=== PATIENT | male | born 1955 | race African-American/Black ===

== ENCOUNTER → 2017-01-22 | Outpatient (CLI) | payer BC ==
--- NOTE | 2017-01-23 14:22 | SLEEP ---
DATE OF STUDY: 01/22/2017 ATTENDING PHYSICIAN: Dr. Chase. The patient is 61 years old who weighs 217 pounds with a BMI of 27. He underwent a split night study at [facility]. The patient's Moorhead score was 10. During the night of study, the patient spent 419 minutes in bed and slept for 379 minutes with a sleep efficiency of 90%. Sleep latency was 23 minutes with a REM latency of 43 minutes. Overall, sleep architecture showed normal stage I sleep, increased stage II sleep, normal slow wave and normal REM sleep. During the initial diagnostic portion of the study, the patient slept for 160 minutes. During that time, there were 56 obstructive apneas, 25 mixed apneas and 2 central apneas. There were 21 hypopneas. The patient's apnea hypopnea index was 29 per hour, supine index 79 per hour and a REM index of 5 per hour. Review of nocturnal oximetry study revealed a mean oxygen saturation of 96%, with the lowest of 85%. Only 0.5% of time oxygen saturation remained between 80% and 89%. EKG monitoring revealed average heart rate of 67 beats per minute, no sustained arrhythmias were observed. PLMs were not seen. The patient met the criteria for CPAP initiation. It was started at 5 cm water and titrated to 11 cm water. At the final pressure, the patient slept for 53 minutes. The patient had supine and REM sleep. The patient's AHI was 0 per hour and oxygen saturation remained above 93%. IMPRESSION: 1. Severe sleep apnea-hypopnea syndrome with an AHI of 39 per hour. 2. No clinically significant nocturnal hypoxia. 3. No clinically significant PLMS. RECOMMENDATIONS: 1. CPAP at 11 cm water completely eliminated the patient's sleep apnea and should be used on a nightly basis. 2. Follow up in 4-6 weeks to assess compliance with CPAP and to document clinical improvement. 3. Weight loss is strongly advised. 4. Avoid [employer] SEATING depressants. 5. Caution regarding driving until symptoms of sleep apnea resolve with the use of CPAP. HEATHER KINNEY MD DR: COLLIN/annalisa JOB#: [id number] / [id number] carrie CHASE DR
== END | disposition home or self-care (01) ==
LOC: RT 18:38
PROVIDERS: ATTEND Physician Assistant Medical
DX: G47.33 Obstructive sleep apnea (adult) (pediatric) (principal)
CPT/HCPCS: 95810

== ENCOUNTER → 2017-08-24 | Day surgery (SDC) | payer BC ==
[~2017-08-24] MED LIST: LIDOCAINE 2% PF Vial for OR 5 ML VIAL.; PROPOFOL 40 ML IV
[2017-08-24] MEDS: IV RINGERS,LACTATED 1000ML 1,000 ML IV (08:10)
== END | disposition home or self-care (01) ==
LOC: ENDOS 07:32
DX: Z12.11 Encounter for screening for malignant neoplasm of colon (principal); K64.0 First degree hemorrhoids; I10 Essential (primary) hypertension; J44.9 Chronic obstructive pulmonary disease, unspecified; K21.9 Gastro-esophageal reflux disease without esophagitis; E78.00 Pure hypercholesterolemia, unspecified; Z98.890 Other specified postprocedural states; Z88.6 Allergy status to analgesic agent; Z79.82 Long term (current) use of aspirin; Z79.899 Other long term (current) drug therapy; Z72.89 Other problems related to lifestyle; Z87.891 Personal history of nicotine dependence
CPT/HCPCS: 45378; J2001; J2704